=== PATIENT | male | born 1995 | race African-American/Black ===

== ENCOUNTER 2023-10-28 21:27 | Emergency (ER) | payer SELFPAY ==
[2023-10-28] MEDS ORDERED: MORPHINE 4 MG/ML SYR ONE (21:57)
[2023-10-28] MEDS ORDERED: ONDANSETRON 4 MG/2 ML VIAL ONE (21:57)
[2023-10-28] MEDS ORDERED: NA CHLORIDE 0.9% 1,000 ML ONE (21:58)
[2023-10-28 22:11] LABS: Albumin 3.5 g/dL (3.4-5.0); Albumin/Globulin Ratio 1.1 (1.1-1.8); Anion Gap 4.9 mEq/L (5.0-15.0); Bilirubin Total 0.4 mg/dL (0.2-1.0); Globulin 3.3 g/dL (2.3-3.5); Potassium 3.9 mEq/L (3.5-5.1); Protein, Total 6.8 g/dL (6.4-8.2)
[2023-10-28 22:12] LABS: Absolute Eosinophils 0.1 K/uL (0-0.5); Absolute Lymphocytes (CBC) 1.5 K/uL (0.7-4.9); Absolute Monocytes 0.6 K/uL (0.1-1.3); Absolute Neutrophil 5.9 K/uL (1.8-8.0); Basophils % 0.5 % (0-1.3); Eosinophils % 1.1 % (0-4.4); Hematocrit 42.2 % (39.6-49.0); Hemoglobin 13.7 g/dL (13.6-17.9); Lymphocytes % 18.9 % (15.3-44.8); MCHC 32.6 g/dL (32.0-36.0); Monocytes % 7.2 % (3.3-12.3); Neutrophils % 72.3 % (41.7-73.7); Nucleated Red Blood Cells % 0.1 % (0-0); Platelets 269 thou/uL (152-406); RBC Red Blood Cell Count 4.74 M/uL (4.33-5.43); Red Cell Distribution Width 12.6 % (12.1-15.2)
--- NOTE | 2023-10-29 00:16 | EDPHYS ---
Physician Documentation [facility] Name: Salvador Mays Age: 28 yrs Sex: Male : 1995 Arrival Date: 10/28/2023 Time: 21:27 Bed 13 Private MD: ED Physician Liu Guajardo HPI: 10/27 21:47 This 28 yrs old Male presents to ER via EMS with complaints of Abdominal Pain, rt Nausea/Vomiting. 21:47 Patient presents to the ED with nausea, vomiting, lower abdominal pain. This started rt about 2 hours prior to arrival. Patient states that he was initially vomiting stomach contents, clear fluid, then subsequently had blood admixed into the vomit. Subsequently developed a lower abdominal pain. Denies urinary symptoms, constipation, diarrhea. Denies other acute complaints at this time, symptoms are moderate in severity, no other aggravating or alleviating factors.. Historical: - Allergies: 21:43 No Known Allergies; [facility] - Home Meds: 21:43 None [Active]; [facility] - PMHx: 21:43 None; [facility] - Immunization history:: Adult Immunizations up to date. - Infectious Disease History:: Denies. - Social history:: Smoking status: Patient denies any tobacco usage or history of. - Family history:: not pertinent. ROS: 21:47 Constitutional: Negative for fever, chills, and weight loss, Cardiovascular: Negative rt for chest pain, palpitations, and edema, Respiratory: Negative for shortness of breath, cough, wheezing, and pleuritic chest pain, MS/Extremity: Negative for injury and deformity, Skin: Negative for injury, rash, and discoloration, Neuro: Negative for headache, weakness, numbness, tingling, and seizure, 21:47 Abdomen/GI: Positive for abdominal pain, nausea and vomiting, Exam: 21:47 Constitutional: This is a well developed, well nourished patient who is awake, alert, rt and in no acute distress. Head/Face: Normocephalic, atraumatic. Chest/axilla: Normal chest wall appearance and motion. Nontender with no deformity. No lesions are appreciated. Cardiovascular: Regular rate and rhythm with a normal S1 and S2. No gallops, murmurs, or rubs. Normal PMI, no JVD. No pulse deficits. Respiratory: Lungs have equal breath sounds bilaterally, clear to auscultation and percussion. No rales, rhonchi or wheezes noted. No increased work of breathing, no retractions or nasal flaring. Abdomen/GI: Soft, non-tender, with normal bowel sounds. No distension or tympany. No guarding or rebound. No evidence of tenderness throughout. Skin: Warm, dry with normal turgor. Normal color with no rashes, no lesions, and no evidence of cellulitis. MS/ Extremity: Pulses equal, no cyanosis. Neurovascular intact. Full, normal range of motion. Neuro: Awake and alert, GCS 15, oriented to person, place, time, and situation. Cranial nerves II-XII grossly intact. Motor strength 5/5 in all extremities. Sensory grossly intact. Cerebellar exam normal. Normal gait. Vital Signs: 21:36 BP 154 / 92; Pulse 72; Resp 16; Temp 98.6; Pulse Ox 100% ; Weight 117.93 kg; Height 6 jm12 ft. 3 in. ; Pain 3/10; 23:21 BP 165 / 102; Pulse 75; Resp 16; Temp 97.6; Pulse Ox 100% ; jm12 21:36 Body Mass Index 32.50 (117.93 kg, 190.5 cm) [facility] 21:36 Pain Scale: Adult 12 MDM: 21:30 Patient medically screened. rt 10/28 00:28 Differential diagnosis: Nonspecific abd pain, gastritis, pancreatitis, appendicitis. rt Data reviewed: vital signs, nurses notes, lab test result(s), radiologic studies. I considered the following discharge prescriptions or medication management in the emergency department Medications were administered in the Emergency Department. See MAR. Independent interpretation of the following test(s) in the Emergency Department CT Scan: My interpretation is No bowel obstruction seen on interpretation of CT scan images. Counseling: I had a detailed discussion with the patient and/or guardian regarding the historical points, exam findings, and any diagnostic results supporting the discharge/admit diagnosis, lab results, radiology results, the need for outpatient follow up, to return to the emergency department if symptoms worsen or persist or if there are any questions or concerns that arise at home. Response to treatment: the patient's symptoms have markedly improved after treatment. 10/27 21:30 Order name: CBC with Diff; Complete Time: 22:51 rt 10/27 21:30 Order name: CMP; Complete Time: 22:51 rt 08 21:30 Order name: Lipase; Complete Time: 22:51 rt 10/27 21:30 Order name: CT Abd/Pelvis - IV Contrast Only rt 10/27 21:30 Order name: IV Saline Lock; Complete Time: 21:36 rt 10/27 21:30 Order name: Labs collected and sent; Complete Time: 21:36 rt Administered Medications: 10/27 22:03 Drug: NS 0.9% IV 1000 ml IV at 1 bolus Per protocol; 1000 mL bolus Route: IV; Rate: 1 jm12 bolus; Site: left antecubital; 22:03 Drug: Ondansetron IVP 4 mg IVP once; over 2 minutes Route: IVP; Site: left antecubital; jm12 22:03 Drug: morphine IVP or IV 4 mg IVP once over 4 mins Route: IVP; Infused Over: 4 mins; jm12 Site: left antecubital; Disposition Summary: 10/29/23 00:16 Discharge Ordered Notes: Location: Home rt Problem: new rt Symptoms: have improved rt Condition: Stable rt Diagnosis - Nausea with vomiting, unspecified rt - Diarrhea, unspecified rt Followup: rt - With: Private Physician - When: 2 - 3 days - Reason: Discharge Instructions: - Discharge Summary Sheet rt - Diarrhea, Adult rt - Nausea and Vomiting, Adult, [id number] rt Forms: - Work release form vc1 - Medication Reconciliation Form rt - Antibiotic Education rt - Prescription Opioid Use rt - Patient Portal Instructions rt - Leadership Thank You Letter rt Prescriptions: - ondansetron 4 mg Oral Tablet,disintegrating - take 1 tablet ORAL route every 6 hours as needed for nausea; 18 tablet; rt Refills: 0, Product Selection Permitted Signatures: Dispatcher [employer] Liu Reyes MD MD rt Adele Rosales, RN RN jm12
--- NOTE | 2023-10-29 00:16 | ER ---
Nurse's Notes [facility] Name: Salvador Mays Age: 28 yrs Sex: Male : 1995 Arrival Date: 10/28/2023 Time: 21:27 Bed 13 Private MD: Diagnosis: Nausea with vomiting, unspecified;Diarrhea, unspecified Presentation: 10/27 21:36 Chief complaint: Patient states: Vomiting. Coronavirus screen: At this time, the client [facility] does not indicate any symptoms associated with coronavirus-19. Ebola Screen: No symptoms or risks identified at this time. Initial Sepsis Screen: Does the patient meet any 2 criteria? No. Patient's initial sepsis screen is negative. Does the patient have a suspected source of infection? No. Patient's initial sepsis screen is negative. Risk Assessment: Do you want to hurt yourself or someone else? Patient reports no desire to harm self or others. Onset of symptoms was October 28, 2023 at 19:30. 21:36 Method Of Arrival: EMS: [facility] 21:36 Acuity: LORETO 3 [facility] Triage Assessment: 21:43 General: Appears in no apparent distress. Behavior is calm, cooperative. Pain: [facility] Complains of pain in abdomen. Historical: - Allergies: 21:43 No Known Allergies; [facility] - Home Meds: 21:43 None [Active]; [facility] - PMHx: 21:43 None; [facility] - Immunization history:: Adult Immunizations up to date. - Infectious Disease History:: Denies. - Social history:: Smoking status: Patient denies any tobacco usage or history of. - Family history:: not pertinent. Assessment: 21:44 General: Appears in no apparent distress. Neuro: No deficits noted. Cardiovascular: No [facility] deficits noted. Respiratory: No deficits noted. GI: Reports lower abdominal pain, upper abdominal pain, nausea, vomiting. : No deficits noted. No signs and/or symptoms were reported regarding the genitourinary system. EENT: No deficits noted. No signs and/or symptoms were reported regarding the EENT system. Derm: No deficits noted. No signs and/or symptoms reported regarding the dermatologic system. Musculoskeletal: No deficits noted. No signs and/or symptoms reported regarding the musculoskeletal system. 22:43 Reassessment: Patient appears in no apparent distress at this time. No changes from [facility] previously documented assessment. Vital Signs: 21:36 BP 154 / 92; Pulse 72; Resp 16; Temp 98.6; Pulse Ox 100% ; Weight 117.93 kg; Height 6 [facility] ft. 3 in. ; Pain 3/10; 23:21 BP 165 / 102; Pulse 75; Resp 16; Temp 97.6; Pulse Ox 100% ; jm12 21:36 Body Mass Index 32.50 (117.93 kg, 190.5 cm) [facility] 21:36 Pain Scale: Adult [facility] ED Course: 21:29 Patient arrived in ED. rv1 21:29 Liu Guajardo MD is Attending Physician. rt 21:43 Triage completed. jm12 21:43 Arm band placed on right wrist. jm12 21:44 Maintain EMS IV. Dressing intact. Good blood return noted. Site clean \T\ dry. Gauge \T\ 12 site: 20 G LAC. 21:46 CBC with Diff Sent. ty 21:46 CMP Sent. ty 21:46 Lipase Sent. ty 21:46 Urinalysis w/ reflexes Sent. ty 23:00 CT Abd/Pelvis - IV Contrast Only In Process Unspecified. EDNE 10/28 00:36 IV discontinued, intact, bleeding controlled, No redness/swelling at site. Pressure [facility] dressing applied. Administered Medications: 10/27 22:03 Drug: NS 0.9% IV 1000 ml IV at 1 bolus Per protocol; 1000 mL bolus Route: IV; Rate: 1 jm12 bolus; Site: left antecubital; 22:03 Drug: Ondansetron IVP 4 mg IVP once; over 2 minutes Route: IVP; Site: left antecubital; [facility] 22:03 Drug: morphine IVP or IV 4 mg IVP once over 4 mins Route: IVP; Infused Over: 4 mins; [facility] Site: left antecubital; Outcome: 10/28 00:16 Discharge ordered by . rt 00:36 Discharged to home ambulatory, [facility] 00:36 Discharge instructions given to patient, Instructed on discharge instructions, follow up and referral plans. medication usage, Demonstrated understanding of instructions, follow-up care, medications, Prescriptions given X 1, 00:37 Patient left the ED. [facility] Signatures: Dispatcher [employer] EDNE Liu Guajardo MD MD rt Denia Enriquez rv1 Jona Stephen Jessica, RN RN jm12
--- NOTE | 2023-10-29 11:07 | RAD REPORT ---
EXAM DESCRIPTION: Abdomen Pelvis W Contrast CLINICAL HISTORY: 28-year-old male with abdominal pain. COMPARISON: None. TECHNIQUE: CT of the abdomen and pelvis was performed following intravenous administration of contra st. Oral contrast was not administered. Multiplanar reformatted images were provided. This exam was p erformed according to our departmental dose optimization program which includes use of automated expo sure control, adjustment of the mA and/or kV according to patient size and/or use of iterative recons truction technique. FINDINGS: Chest: Evaluation through the lung bases reveals no focal opacity, pleural effusion or pne umothorax. Heart size is within normal limits. No pericardial effusion. Abdomen and pelvis: The liver, gallbladder, pancreas, spleen, bilateral kidneys and bilateral adrenal glands are within normal limits. The vessels are patent and normal in caliber. No abdominopelvic lymph nodes are noted to be pathologically enlarged by CT measurement criteria. The bowel is within normal limits without abnormal bowel wall thickness or bowel dilation. No free air. No free abdominopelvic fluid collections. The appendix is within normal limits. The osseous structures are within normal limits. IMPRESSION: No specific acute intra-abdominal findings are noted to suggest etiology of the patient' s abdominal pain. Electronically signed by: Rosemary García MD 10/28/2023 11:59 PM CDT RP Due to temporary technical issues with the PACS/Fluency reporting system, reports are being signed by the in house radiologists without review as a courtesy to insure prompt reporting. The interpreting radiologist is fully responsible for the content of the report.
== END 2023-10-29 00:37 | disposition home or self-care (01) ==
LOC: ER 21:27
DX: R11.2 Nausea with vomiting, unspecified (principal); R19.7 Diarrhea, unspecified
CPT/HCPCS: 36415; 74177; 80053; 83690; 85025; 96374; 96375; 99284; J2405; J7030; Q9967

== ENCOUNTER 2024-01-16 21:04 | Emergency (ER) | payer OTHER ==
[2024-01-16] MEDS ORDERED: DIAZEPAM 5 MG TABLET ONE (21:46)
[2024-01-16 21:58] LABS: Absolute Basophils 0.1 K/uL (0-0.5); Absolute Lymphocytes (CBC) 1.8 K/uL (0.7-4.9); Absolute Monocytes 0.6 K/uL (0.1-1.3); Absolute Neutrophil 5.3 K/uL (1.8-8.0); Basophils % 0.8 % (0-1.3); Eosinophils % 0.1 % (0-4.4); Hematocrit 46.7 % (39.6-49.0); Hemoglobin 15.5 g/dL (13.6-17.9); Lymphocytes % 23.6 % (15.3-44.8); MCH 29.1 pg (27.0-35.0); MCHC 33.2 g/dL (32.0-36.0); MCV 87.7 fL (80-100); MPV 8.8 fL (7.6-11.3); Monocytes % 7.5 % (3.3-12.3); Platelets 264 thou/uL (152-406); RBC Red Blood Cell Count 5.33 M/uL (4.33-5.43); Red Cell Distribution Width 12.2 % (12.1-15.2)
[2024-01-16 22:25] LABS: ALT/SGPT 25 U/L (16-61); Albumin 4.4 g/dL (3.4-5.0); Albumin/Globulin Ratio 1.2 (1.1-1.8); Alkaline Phosphatase 76 U/L (45-117); Anion Gap 11.6 mEq/L (5.0-15.0); BUN Blood Urea Nitrogen 15 mg/dL (7-18); Bicarbonate 26 mEq/L (21-32); Bilirubin Direct 0.2 mg/dL (0-0.2); Bilirubin Indirect, Calculated 0.8 mg/dL (0.2-0.8); Globulin 3.8 g/dL (2.3-3.5); Glomerular Filtration Rate 86 ml/min (=/>90); Glucose Level 89 mg/dL (74-106); Protein, Total 8.2 g/dL (6.4-8.2); Sodium Level 137 mEq/L (136-145)
[2024-01-16 22:26] LABS: AST/SGOT 27 U/L (15-37); Potassium 3.6 mEq/L (3.5-5.1)
[2024-01-16 22:32] LABS: PTT, Activated Partial Thromb 30.1 SECONDS (24.3-36.9); Protime INR 1.26
[2024-01-17] MEDS ORDERED: LORazepam 2 MG/ML VIAL ONE (01:02)
[2024-01-17 01:41] LABS: Specific Gravity > 1.030 (1.005-1.030); Sqamous Epithelial <5 /HPF (None Seen); Urine Bacteria None Seen /HPF (<20); Urine Bilirubin 1+ (Negative); Urine Blood Negative (Negative); Urine Clarity Clear (Clear); Urine Color Yellow (Yellow); Urine Culture Reflex Order NOT NEEDED; Urine Glucose NEGATIVE (Negative); Urine Ketones 4+ (Over) (Negative); Urine Microscopic Reflex YN ORDER UMIC; Urine Mucus 2+ /HPF (None Seen); Urine Nitrite NEGATIVE (Negative); Urine Protein 1+ (Negative); Urine RBC <5 /HPF (None Seen); Urine Urobilinogen 1+ (Normal); Urine WBC <5 /HPF (<5)
[2024-01-17 01:44] LABS: Barbiturates NEGATIVE (NEGATIVE); Benzodiazepines POSITIVE (NEGATIVE); Cocaine NEGATIVE (NEGATIVE); METHAMPHETAM NEGATIVE (NEGATIVE); Methadone NEGATIVE (NEGATIVE); Opiates NEGATIVE (NEGATIVE); Phencyclidine NEGATIVE (NEGATIVE); THC Cannibis POSITIVE (NEGATIVE)
--- NOTE | 2024-01-17 04:55 | EDPHYS ---
Physician Documentation [facility] Name: Salvador Mays Age: 28 yrs Sex: Male : 1995 Arrival Date: 01/16/2024 Time: 21:04 Bed 15 Private MD: ED Physician Carlos Arana HPI: 01/15 21:13 This 28 yrs old Black Male presents to ER via Unassigned with complaints of depression..sp4 21:16 28-year-old male presents with EMS for acute worsening depression with suicide plan.. sp4 Patient's mother states that 3 months ago patient has a painful break-up from his girlfriend with whom he has 3-1/2-year-old child. Patient also lost his job 3 months ago and has lost his income. 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 Patient attempted to hang himself on the ceiling fan but could not go through it at home. Patient has not had any prior psychiatric treatment and does not take any medications. No prior suicide attempts . Historical: - Allergies: 21:38 Grass; jj7 - PMHx: 21:38 None; jj7 - PSHx: 21:38 None; jj7 - Immunization history:: Client reports having NOT received the Covid vaccine. - Social history:: The patient is unemployed, Smoking status: Patient reports the use of cigarette tobacco products, cigars, Patient/guardian denies using alcohol, street drugs. - Infectious Disease History:: Denies. - Family history:: not pertinent. ROS: 21:19 Constitutional: Negative for fever, chills, and weight loss, positive depression with sp4 positive suicidal ideation and plan. 21:19 All other systems are negative, Exam: 21:19 Constitutional: This is a well developed, well nourished patient who is awake, alert, sp4 and in no acute distress. Head/Face: Normocephalic, atraumatic. Eyes: Pupils equal round and reactive to light, extra-ocular motions intact. Lids and lashes normal. Conjunctiva and sclera are not injected. Cornea within normal limits. Periorbital areas with no swelling, redness, or edema. ENT: Nares patent. No nasal discharge, no septal abnormalities noted. Tympanic membranes are normal and external auditory canals are clear. Oropharynx with no redness, swelling, or masses, exudates, or evidence of obstruction, uvula midline. Mucous membranes moist. Neck: Trachea midline, no thyromegaly or masses palpated, and no cervical lymphadenopathy. Supple, full range of motion without nuchal rigidity, or vertebral point tenderness. Chest/axilla: Normal chest wall appearance and motion. Nontender with no deformity. No lesions are appreciated. Cardiovascular: Regular rate and rhythm with a normal S1 and S2. No gallops, murmurs, or rubs. Normal PMI, no JVD. No pulse deficits. Respiratory: Lungs have equal breath sounds bilaterally, clear to auscultation and percussion. No rales, rhonchi or wheezes noted. No increased work of breathing, no retractions or nasal flaring. Abdomen/GI: Soft, with normal bowel sounds. No distension or tympany. No guarding or rebound. No evidence of tenderness throughout. Back: No spinal tenderness. No costovertebral tenderness. Skin: Warm, dry with normal turgor. Normal color with no rashes, no lesions, and no evidence of cellulitis. MS/ Extremity: Pulses equal, no cyanosis. Neurovascular intact. Full, normal range of motion. Neuro: Awake and alert, GCS 15, oriented to person, place, time, and situation. Cranial nerves II-XII grossly intact. Motor strength 5/5 in all extremities. Sensory grossly intact. Psych: Awake, alert, with orientation to person, place and time. Appers depressed, reports suicidal ideation with plan 21:20 ECG was reviewed by the Attending Physician. EKG at 2052 normal sinus rhythm at the sp4 rate of 98. Vital Signs: 21:04 BP 186 / 92; Pulse 87; Resp 18; Temp 97.2; Pulse Ox 97% ; Weight 113.4 kg; Height 6 ft. jj7 3 in. ; 01/16 06:14 BP 135 / 93; Pulse 99; Resp 20; Pulse Ox 98% ; jj7 07:29 BP 130 / 90; Pulse 85; Resp 18 S; Temp 98.1(TE); Pulse Ox 100% on R/A; Pain 0/10; kc6 01/15 21:04 Body Mass Index 31.25 (113.40 kg, 190.5 cm) jj7 07:29 Pain Scale: Adult kc6 [place] Coma Score: 01/15 21:19 Eye Response: spontaneous(4). Motor Response: obeys commands(6). Verbal Response: sp4 oriented(5). Total: 15. MDM: 21:16 Medical Screening Exam initiated 01/16 04:53 Differential diagnosis: drug withdrawal. acute psychotic break, depression, psychosis sp4 secondary to non-compliance. Data reviewed: vital signs, nurses notes, EMS record, lab test result(s), EKG. ED course: Positive for suicidality with plan. [facility] associate evaluated patient and advised inpatient management. Patient will be sent to psychiatric hospital for further stabilization.. 01/15 21:14 Order name: Acetaminophen; Complete Time: :4 01/15 21:14 Order name: Basic Metabolic Panel; Complete Time: :4 01/15 21:14 Order name: CBC with Diff; Complete Time: 01: 4 01/15 21:14 Order name: ETOH Level; Complete Time: : 4 01/15 21:14 Order name: Hepatic Function; Complete Time: 01:4 01/15 21:14 Order name: PT-INR; Complete Time: :4 01/15 21:14 Order name: Ptt, Activated; Complete Time: :4 01/15 21:14 Order name: Salicylate; Complete Time: :4 01/15 21:14 Order name: Urinalysis w/ reflexes; Complete Time: : 4 01/15 21:14 Order name: Urine Drug Screen; Complete Time: 4 01/15 21:14 Order name: EKG - Nurse/Tech; Complete Time: :4 01/15 21:14 Order name: IV Saline Lock; Complete Time: : sp4 01/15 21:14 Order name: Labs collected and sent; Complete Time: : sp4 01/15 21:14 Order name: Suicide Precautions; Complete Time: : sp4 01/15 21:14 Order name: Suicide Screening ([place]); Complete Time: :33 sp4 EC/24 20:53 Rate is 98 beats/min. Rhythm is regular, Normal Sinus Rhythm. QRS [place] is Normal. [place] sp4 interval is normal. QRS interval is normal. QT interval is normal. No Q waves. T waves are Normal. No ST changes noted. Clinical impression: No evidence of ischemia. Interpreted by me. Reviewed by me. Administered Medications: 21:49 Drug: Diazepam PO 10 mg PO once Route: PO; tm6 23:00 Follow up: Response: No adverse reaction jj7 01/16 01:06 Drug: Ativan IVP 2 mg IVP once Route: IVP; Site: left antecubital; jj7 01:30 Follow up: Response: Marked relief of symptoms; Anxiety decreased jj7 Disposition Summary: 01/17/24 04:54 Transfer Ordered Notes: Transfer Location: [facility] sp4 Reason: Higher level of care sp4 Condition: Stable sp4 Problem: new sp4 Symptoms: have improved sp4 Accepting Physician: Attending psychiatrist(01/17/24 07:36) kc6 Diagnosis - Acute depressive disorder, acute anxiety, acute panic attack, suicidal ideation sp4 with plan . Forms: - Medication Reconciliation Form sp4 - SBAR form sp4 Signatures: Dispatcher [employer] EDHazel White RN RN ha1 Jodi Mann RN RN kc6 Chandrakant Ibarra RN RN jj7 Carlos Arana MD MD sp4 Lexa Mendez RN RN tm6 Corrections: (The following items were deleted from the chart) 01/15 21:15 21:15 ACETAMINOPHEN+C.LAB.BRZ ordered. EDMS EDMS 21:15 21:15 BASIC METABOLIC PANEL+C.LAB.BRZ ordered. EDMS EDMS 21:15 21:15 CBC+H.LAB.BRZ ordered. EDMS EDMS 21:15 21:15 ETHANOL+C.LAB.BRZ ordered. EDMS EDMS 21:15 21:15 HEPATIC FUNCTION+C.LAB.BRZ ordered. EDMS EDMS 21:15 21:15 PROTIME (+INR)+COAG.LAB.BRZ ordered. EDMS EDMS 21:15 21:15 PTT, ACTIVATED+COAG.LAB.BRZ ordered. EDMS EDMS 21:15 21:15 SALICYLATE+C.LAB.BRZ ordered. EDMS EDMS 21:15 21:15 Urinalysis+U.LAB.BRZ ordered. EDMS EDMS 21:15 21:15 URINE DRUG SCREEN+UC.LAB.BRZ ordered. EDPA EDMS 01/16 07:36 04:54 Attending psychiatrist sp4 kc6
--- NOTE | 2024-01-17 04:55 | ER ---
Nurse's Notes [facility] Name: Salvador Mays Age: 28 yrs Sex: Male : 1995 Arrival Date: 01/16/2024 Time: 21:04 Bed 15 Private MD: Diagnosis: Acute depressive disorder, acute anxiety, acute panic attack, suicidal ideation with plan . Presentation: 01/15 21:04 Chief complaint: Patient states: PT STATES HE WAS TRYING TO HANG HIMSELF FROM THE FAN jj7 BUT IT COULDN'T HOLD HIS WEIGHT SO IT DID NOT WORK. STATES HE THIS IS NOT HIS FIRST SI ATTEMPT. Coronavirus screen: At this time, the client does not indicate any symptoms associated with coronavirus-19. Ebola Screen: No symptoms or risks identified at this time. Initial Sepsis Screen: Does the patient meet any 2 criteria? No. Patient's initial sepsis screen is negative. Does the patient have a suspected source of infection? No. Patient's initial sepsis screen is negative. Risk Assessment: Do you want to hurt yourself or someone else? Patient reports desire/thoughts of hurting themselves or someone else. Provider notified. Onset of symptoms is unknown. 21:04 Method Of Arrival: EMS: [facility] j7 21:04 Acuity: LORETO 2 jj7 Triage Assessment: 21:04 General: Appears in no apparent distress. comfortable, Behavior is calm, cooperative, jj7 appropriate for age. Pain: Denies pain. Neuro: Level of Consciousness is awake, alert, obeys commands, Oriented to person, place, time, situation, Appropriate for age. Historical: - Allergies: 21:38 Grass; jj7 - PMHx: 21:38 None; jj7 - PSHx: 21:38 None; jj7 - Immunization history:: Client reports having NOT received the Covid vaccine. - Social history:: The patient is unemployed, Smoking status: Patient reports the use of cigarette tobacco products, cigars, Patient/guardian denies using alcohol, street drugs. - Infectious Disease History:: Denies. - Family history:: not pertinent. Screenin:04 [facility] ED Fall Risk Assessment (Adult) History of falling in the last 3 months, jj7 including since admission No falls in past 3 months (0 pts) Confusion or Disorientation No (0 pts) Intoxicated or Sedated No (0 pts) Impaired Gait No (0 pts) Mobility Assist Device Used No (0 pt) Altered Elimination No (0 pt) Score/Fall Risk Level 0 - 2 = Low Risk Oriented to surroundings, Maintained a safe environment, Educated pt \\T\\ family on fall prevention, incl call for assistance when getting out of bed, Assessed \\T\\ reinforced patient's understanding of fall precautions. Abuse screen: Denies threats or abuse. Nutritional screening: No deficits noted. Tuberculosis screening: No symptoms or risk factors identified. Assessment: 21:04 Reassessment: SEE TRIAGE ASSESSMENT. jj7 21:11 General: Appears in no apparent distress. Behavior is calm, cooperative. Pain: Denies tm6 pain. Neuro: Level of Consciousness is awake, alert, obeys commands, Oriented to person, place, time, situation. Cardiovascular: Patient's skin is warm and dry. Respiratory: Airway is patent Respiratory effort is even, unlabored, Respiratory pattern is regular, symmetrical. GI: No signs and/or symptoms were reported involving the gastrointestinal system. Abdomen is flat, non-distended. : No signs and/or symptoms were reported regarding the genitourinary system. EENT: No signs and/or symptoms were reported regarding the EENT system. Derm: No signs and/or symptoms reported regarding the dermatologic system. Musculoskeletal: No signs and/or symptoms reported regarding the musculoskeletal system. 22:00 Reassessment: ASSUMED CARE OF PT. PT SITTING IN BED. MOTHER AT BEDSIDE. REASSESSED SI jj7 SCALE. INFORMED PT OF PLAN OF CARE AND SI PROTOCOL. 01/16 00:00 Reassessment: Patient is alert, oriented x 3, equal unlabored respirations, skin jj7 warm/dry/pink. MOTHER AT BEDSIDE. 01:00 Reassessment: PT APPEARS TO BE HAVING AN ANXIETY ATTACK. INFORMED. MEDS ORDERED. jj7 03:00 Reassessment: PT SLEEPING. MOTHER AT BEDSIDE. jj7 03:40 Reassessment: [facility] HANGER AT BESIDE SPEAKING WITH PT. j 05:40 Reassessment: PT SLEEPING. jj7 06:12 Reassessment: REPORT GIVEN RONAL RIVERA [facility]. jj7 07:00 Reassessment: Patient appears in no apparent distress at this time. No changes from kc6 previously documented assessment. Patient and/or family updated on plan of care and expected duration. Pain level reassessed. Patient is alert, oriented x 3, equal unlabored respirations, skin warm/dry/pink. Psych: 01/15 21:11 [place] Suicide Severity Screening: In the past month, have you wished you were tm6 or wished you could go to sleep and not wake up? Patient responds "yes." Based off the client's responses additional C-SSRS screening is required. "In the past month, have you actually had any thoughts of killing yourself?" Patient responds "yes." Based off the client's response additional [place] suicide severity screening questions to be further documented on paper forms. "In your lifetime, have you ever done anything, started to do anything, or prepared to do anything to end your life?" Patient responds "yes." Patient reports suicidal intent within 3 past months. Patient reports suicidal intent occurred greater than 3 months prior. Subjective: Patient's mood is sad, Delusions are denied, Hallucinations are denied Having thoughts of suicide. Plan for suicide is hanging. Objective: Patient is cooperative, Speech is normal, Affect is appropriate. Interventions: Removed personal items and placed in bag. Patient placed in hospital gown. Searched person for dangerous items. Belonging list filled out. Safety Checks: Personal items have been removed. Door is open. Visitors are present. Pt denies substance abuse. Vital Signs: 21:04 BP 186 / 92; Pulse 87; Resp 18; Temp 97.2; Pulse Ox 97% ; Weight 113.4 kg; Height 6 ft. [facility] 3 in. ; 01/16 06:14 BP 135 / 93; Pulse 99; Resp 20; Pulse Ox 98% ; 7 07:29 BP 130 / 90; Pulse 85; Resp 18 S; Temp 98.1(TE); Pulse Ox 100% on R/A; Pain 0/10; kc6 01/15 21:04 Body Mass Index 31.25 (113.40 kg, 190.5 cm) 7 07:29 Pain Scale: Adult kc6 Stevenson Coma Score: 01/15 21:19 Eye Response: spontaneous(4). Motor Response: obeys commands(6). Verbal Response: sp4 oriented(5). Total: 15. ED Course: 21:04 Arm band placed on right wrist. jj7 21:04 Patient has correct armband on for positive identification. Side rails up X2. Adult w/ jj7 patient. 21:04 No provider procedures requiring assistance completed. jj7 21:11 Patient arrived in ED. vc1 21:11 Safety checks: Items removed: yes. Door open/sign placed on door: no. Other: noise from ty monitors in area causing distress Family/friend present: yes. Sitter present: Yes. Patient has correct armband on for positive identification. Placed in gown. Bed in low position. Side rails up X 1. Adult w/ patient. Valuables Given to family. See valuables checklist. Door closed. Noise minimized. Lights dimmed. Warm blanket given. Pillow given. PO fluids given. 21:12 Carlos Arana MD is Attending Physician. sp4 21:18 Initial lab(s) drawn, by me, sent to lab. EKG done, by ED staff, reviewed by Carlos Arana MD. Inserted saline lock: 20 gauge in left antecubital area, using aseptic technique. Blood collected. Flushed with 10 mL NS. 21:30 Lexa Mendez, RN is Primary Nurse. tm6 21:38 Triage completed. jj7 22:03 Acetaminophen Sent. ty 22:03 Basic Metabolic Panel Sent. ty 22:03 CBC with Diff Sent. ty 22:03 ETOH Level Sent. ty 22:06 Hepatic Function Sent. ty 22:06 PT-INR Sent. ty 22:06 Ptt, Activated Sent. ty 22:06 Salicylate Sent. ty 01/16 01:15 called [facility] fidel Gonzalez. sp 06:16 administrative approval given to Lamar by Arun Ward/ patient has been accepted to [facility]/ Dr. Feroz Larkin has accepted the patient in transfer/. 07:00 Safety Checks: Personal items have been removed. The door is not opened, nor is patient kc6 placed in a hallway bed/chair. There are no family/friend visitors at this time Sitter present at this time. 07:00 Report received from MIGUEL WINTER. kc6 07:00 Door closed. Noise minimized. Visitors limited. Lights dimmed. Warm blanket given. kc6 Pillow given. Patient is placed in psych hold. 07:00 Patient maintains SpO2 saturation greater than 95% on room air. kc6 07:07 Report given to JODI RIVERA. jj7 07:30 IV discontinued, intact, bleeding controlled, No redness/swelling at site. Pressure kc6 dressing applied. Administered Medications: 01/15 21:49 Drug: Diazepam PO 10 mg PO once Route: PO; tm6 23:00 Follow up: Response: No adverse reaction jj7 01/16 01:06 Drug: Ativan IVP 2 mg IVP once Route: IVP; Site: left antecubital; jj7 01:30 Follow up: Response: Marked relief of symptoms; Anxiety decreased jj7 Medication: 01/15 21:04 VIS not applicable for this client. jj7 Outcome: 01/16 04:54 ER care complete, transfer ordered by . sp4 07:30 Transferred by ground EMS Transfer form completed. kc6 07:30 Condition: good 07:30 Instructed on the need for transfer, 07:30 Patient left the ED. aa5 07:30 Transferred Note: to [facility] aa5 Signatures: Lamar Johansen Audri, RN RN aa5 Ariana Hernandez Vanessa RN RN vc1 Hazel Saez RN RN ha1 Jodi Mann RN RN kc6 Chandrakant Ibarra RN RN jj7 Carlos Arana MD MD sp4 Lexa Mendez RN RN tm6 Jona Stephen ty Corrections: (The following items were deleted from the chart) 01/15 22:09 21:18 Safety checks: ty ty : 21:18 Safety checks: Items removed: yes. Door open/sign placed on door: no. Other: ty noise from monitors in area causing distress Family/friend present: yes. Sitter present: Yes. ty 22: 21:18 Patient has correct armband on for positive identification. Placed in gown. Bed ty in low position. Side rails up X 1. Adult w/ patient. Valuables Given to family. See valuables checklist. ty : 21:18 Door closed. Noise minimized. Lights dimmed. Warm blanket given. Pillow given. PO ty fluids given. ty : 21:11 Reassessment: Patient and/or family updated on plan of care and expected ha1 duration. Pain level reassessed. Patient is alert, oriented x 3, equal unlabored respirations, skin warm/dry/pink. [facility] :34 21:11 General: Appears in no apparent distress. Behavior is calm, cooperative, 1 1 :34 21:11 Pain: Denies pain. 1 1 :34 21:11 Neuro: Level of Consciousness is awake, alert, obeys commands, Oriented to ha1 person, place, time, situation, [facility] :34 21:11 Cardiovascular: Patient's skin is warm and dry. 1 1 :34 21:11 Respiratory: Airway is patent Respiratory effort is even, unlabored, Respiratory ha1 pattern is regular, symmetrical, [facility] :34 21:11 GI: No signs and/or symptoms were reported involving the gastrointestinal system. ha1 Abdomen is flat, non-distended, [facility] :34 21:11 : No signs and/or symptoms were reported regarding the genitourinary system. 11 :34 21:11 EENT: No signs and/or symptoms were reported regarding the EENT system. 1 1 :34 21:11 Derm: No signs and/or symptoms reported regarding the dermatologic system. 1 1 :34 21:11 Musculoskeletal: No signs and/or symptoms reported regarding the musculoskeletal ha1 system. [facility] :34 21:11 [place] Suicide Severity Screening: In the past month, have you wished you were ha1 or wished you could go to sleep and not wake up? Patient responds "yes." Based off the client's responses additional C-SSRS screening is required. "In the past month, have you actually had any thoughts of killing yourself?" Patient responds "yes." Based off the client's response additional [place] suicide severity screening questions to be further documented on paper forms. "In your lifetime, have you ever done anything, started to do anything, or prepared to do anything to end your life?" Patient responds "yes." Patient reports suicidal intent within 3 past months. Patient reports suicidal intent occurred greater than [address] [facility] :34 21:11 Subjective: Patient's mood is sad, Delusions are denied, Hallucinations are ha1 denied Having thoughts of suicide. Plan for suicide is hanging [facility] 21:11 Objective: Patient is cooperative, Speech is normal, Affect is appropriate, [place] [id number] 34 21:11 Interventions: Removed personal items and placed in bag. Patient placed in [facility] hospital gown. Searched person for dangerous items. Belonging list filled out. [facility] 21:11 Safety Checks: Personal items have been removed. Door is open. Visitors are [facility] present. [facility] 21:11 Pt denies substance abuse [place] [id number] 01/16 08:14 07:36 Patient left the ED. kc6 aa5
--- NOTE | 2024-01-17 14:12 | EKG ---
Test Date: 2024-01-16 Test Time: 20:53:06 Craft Manager: SOPHY MEASUREMENT RESULTS: Intervals: Rate: 98 ME: 190 QRSD: 80 QT: 316 QTc: 403 Reading: P: -9 ME: 190 QRS: 8 T: 8 INTERPRETIVE STATEMENTS: Normal sinus rhythm with sinus arrhythmia Normal ECG No previous ECG available for comparison Electronically Signed On 01-17-24 14:10:56 CDT by Brad Campo
[2024-01-17 19:04] VITALS: BP 130/90; TEMP 98.1; O2SAT 100
== END 2024-01-17 07:36 ==
LOC: ER 21:04
DX: F32.A Depression, unspecified (principal); F41.0 Panic disorder [episodic paroxysmal anxiety]; F41.9 Anxiety disorder, unspecified; R45.851 Suicidal ideations; Z72.0 Tobacco use
CPT/HCPCS: 36415; 80048; 80076; 80143; 80179; 80307; 81001; 82077; 85025; 85610; 85730; 93005; 96374; 99285

== ENCOUNTER 2024-12-15 09:59 | Emergency (ER) | payer OTHER ==
--- OUTSIDE RECORDS SUMMARY | 2024-12-15 10:03 | XMS REPORT | Continuity of Care Document ---
Author Name Unknown Address [address] [place] [address] [facility] Address [address] [place] [address] Care Team Providers Care Vice President Business & Corporate Development Name Role Phone Jeanette Santos Primary Care Physician Medications Ordered Medication Name Filled Medication Name Start Date Stop Date Current Medication? Ordering Clinician Indication Dosage Frequency Signature (SIG) Comments Components Source doxycycline monohydrate 100 mg tablet 11-06 00:00: 00 Yes 1mg Isidro Alegre Vital Signs Vital Name Observation Time Observation Value Comments S ource Weight Measured 2024-11-06 14:32:00 232.80 pounds Isidro Alegre Height Measured 2024-11-06 14:32:00 75.00 inches Isidro Alegre Body Temperature 2024-11-06 14:32:00 97.80 degrees Isidro Alegre Heart Rate 2024-11-06 14:32:00 67.00 /min Ciara en F Codey Respiratory Rate 2024-11-06 14:32:00 18.00 /min Isidro Alegre BP Systolic 2024-11-06 14:32:00 146 mm[Hg] Step hen Ally Alegre BP Diastolic 2024-11-06 14:32:00 91 mm[Hg] Kody phen Ally Alegre Encounters Start Date/Time End Date/Time Encounter Type Admission Type Attending Clinicians [facility] Facility Care Department Encounter ID Source 2024-11-06 14:55:30 2024-11-06 14:55:30 Outpatient [facility] SFA [id number] Isidro Alegre 2024-11-06 00:00:00 2024-11-06 00:00:[address] [facility] [id number] Isidro Alegre Notes Date/Time Note Provider Source Isidro Alegre [facility]
[2024-12-15] MEDS ORDERED: HYDROCODONE/CHLORPHEN 5 ML/OSYR ONE (10:05)
[2024-12-15] MEDS ORDERED: ONDANSETRON 4 MG/2 ML VIAL ONE (10:05)
[2024-12-15] MEDS ORDERED: NA CHLORIDE 0.9% 1,000 ML ONE (10:05)
[2024-12-15 10:26] LABS: Absolute Lymphocytes (CBC) 1.1 K/uL (0.7-4.9); Hematocrit 47.3 % (39.6-49.0); Hemoglobin 15.1 g/dL (13.6-17.9); MCH 28.3 pg (27.0-35.0); MCHC 32.0 g/dL (32.0-36.0); MCV 88.5 fL (80-100); MPV 7.9 fL (7.6-11.3); Nucleated RBC Absolute Count 0.0 (0-0); Nucleated Red Blood Cells % 0.0 % (0-0); RBC Red Blood Cell Count 5.35 M/uL (4.33-5.43); White Blood Count 11.30 thou/uL (4.3-10.9)
[2024-12-15 10:41] LABS: ALT/SGPT 21.0 U/L (16-61); AST/SGOT 20.0 U/L (15-37); Albumin 4.0 g/dL (3.4-5.0); Albumin/Globulin Ratio 1.1 (1.1-1.8); Alkaline Phosphatase 66.0 U/L (45-117); Anion Gap 10.6 mEq/L (5.0-15.0); BUN Blood Urea Nitrogen 11.0 mg/dL (7-18); Globulin 3.5 g/dL (2.3-3.5); Glucose Level 103.0 mg/dL (74-106); Potassium 3.6 mEq/L (3.5-5.1)
--- NOTE | 2024-12-15 10:41 | RAD REPORT ---
EXAMINATION: ONE VIEW CHEST XR CLINICAL INDICATION: Male, 29 years old.,COUGH TECHNIQUE: Frontal chest projection is submitted. Examination is limited by patient positioning and t echnique. COMPARISON: No prior exam. FINDINGS: The lungs are well inflated and clear. No pneumothorax or sizable effusion. The heart is normal in s ize. Mediastinal contours are unremarkable. IMPRESSION: No acute intrathoracic abnormalities.
[2024-12-15 10:51] LABS: Influenza A Ag Negative; Influenza B Ag Negative; SARS-CoV-2 Antigen Rapid Res Negative (Negative)
--- NOTE | 2024-12-15 11:11 | EDPHYS ---
Physician Documentation [facility] Name: Salvador Mays Age: 29 yrs Sex: Male : 1995 Arrival Date: 12/15/2024 Time: 09:59 Bed 15 Private MD: ED Physician Benjie Garcia HPI: 12/15 11:00 This 29 yrs old Black Male presents to ER via EMS with complaints of Flu Symptoms. kb 11:00 Pt is a 29 year old male who presents for cough, congestion, nausea, vomiting and kb bodyaches that started 2 days ago. Denies fever. States child has also been sick with similar symptoms.. Historical: - Allergies: 10: Grass; bp - Immunization history:: Adult Immunizations up to date. - Infectious Disease History:: Denies. - Social history:: Smoking status: unknown. ROS: 10:59 Constitutional: As per HPI kb Exam: 10:59 Constitutional: This is a well developed, well nourished patient who is awake, alert, kb and in no acute distress. Head/Face: Normocephalic, atraumatic. ENT: Moist Mucous membranes Cardiovascular: Regular rate Respiratory: Respirations even and unlabored. No increased work of breathing. Talking in full sentences Skin: Warm, dry with normal turgor. Normal color. MS/ Extremity: Pulses equal, no cyanosis. Neurovascular intact. Full, normal range of motion. Neuro: Awake and alert, GCS 15, oriented to person, place, time, and situation. Vital Signs: 10:00 BP 148 / 88; Pulse 98; Resp 20; Temp 99.1; Pulse Ox 98% ; bp 11:29 BP 139 / 78; Pulse 87; Resp 20; Pulse Ox 98% ; bp MDM: 10:00 Medical Screening Exam initiated kb 11:00 Data reviewed: vital signs, nurses notes. kb 11:07 Differential diagnosis: flu, covid, strep, asthma, pneumonia. I considered the kb following discharge prescriptions or medication management in the emergency department I discussed and recommended Over The Counter medications, Antibiotics: At this time antibiotics are not recommended. Independent interpretation of the following test(s) in the Emergency Department X-Ray: My interpretation is no pneumoina. Historians other than the Patient: EMS: [facility]. Counseling: I had a detailed discussion with the patient and/or guardian regarding the historical points, exam findings, and any diagnostic results supporting the discharge/admit diagnosis, lab results, radiology results, the need for outpatient follow up, a family practitioner, to return to the emergency department if symptoms worsen or persist or if there are any questions or concerns that arise at home. 12/15 10:01 Order name: CBC with Diff; Complete Time: 10:30 kb 12/15 10:01 Order name: CMP; Complete Time: 10:51 kb 12/15 10:01 Order name: COVID-19 Ag + Flu A+B Ag; Complete Time: 10:59 kb 12/15 10:04 Order name: Group A Streptococcus Rapid; Complete Time: 10:51 kb 12/15 10:45 Order name: Throat Culture EDMS 12/15 10:01 Order name: Chest Single View XRAY; Complete Time: 10:51 kb 12/15 10:01 Order name: IV Saline Lock; Complete Time: 10:31 kb 12/15 10:01 Order name: Labs collected and sent; Complete Time: 10:31 kb Administered Medications: 10:13 Drug: NS 0.9% IV 1000 ml IV at 1 bolus Per protocol; to be given as a bolus over 60 bp minutes Route: IV; Rate: 1 bolus; Site: right antecubital; 11:28 Follow up: IV Status: Completed infusion bp 10:14 Drug: Ondansetron IVP 4 mg IVP once; over 2 minutes Route: IVP; Site: right antecubital;bp 11:28 Follow up: Response: No adverse reaction bp 10:14 Drug: Tussionex Pennkinetic ER PO Suspension 5 ml PO once Route: PO; bp 11:28 Follow up: Response: No adverse reaction bp 11:28 Drug: Decadron - Dexamethasone IVP 10 mg IVP once Route: IVP; Site: right antecubital; bp 11:28 Follow up: Response: No adverse reaction bp Disposition Summary: 12/15/24 11:10 Discharge Ordered Notes: Location: Home kb Condition: Stable kb Diagnosis - Acute upper respiratory infection, unspecified kb Followup: kb - With: Emergency Department - When: As needed - Reason: Worsening of condition Followup: kb - With: Private Physician - When: 2 - 3 days - Reason: Recheck today's complaints, Continuance of care, Re-evaluation by your physician Discharge Instructions: - Discharge Summary Sheet kb - Upper Respiratory Infection, Adult, [id number] kb Forms: - Medication Reconciliation Form kb - Antibiotic Education kb - Prescription Opioid Use kb - Patient Portal Instructions kb - Leadership Thank You Letter kb Prescriptions: - albuterol sulfate 90 mcg/actuation Inhalation HFA Aerosol Inhaler - inhale 2 puff INHALATION route every 4 to 6 hours as needed for shortness of kb breath or wheezing; 1 Unspecified; Refills: 0, Product Selection Permitted - Prednisone 20 mg Oral Tablet - take 1 tablet ORAL route once daily for 5 days; 5 tablet; Refills: 0, Product kb Selection Permitted - Tessalon Perles 100 mg Oral Capsule - take 1 capsule ORAL route every 8 hours As needed; 15 capsule; Refills: 0, kb Product Selection Permitted Signatures: Dispatcher [employer] Virginia Nguyen, SUPERVISOR WET END-C SUPERVISOR WET END-Kong Squires, RN RN bp
--- NOTE | 2024-12-15 11:11 | ER ---
Nurse's Notes [facility] Name: Salvador Mays Age: 29 yrs Sex: Male : 1995 Arrival Date: 12/15/2024 Time: 09:59 Bed 15 Private MD: Diagnosis: Acute upper respiratory infection, unspecified Presentation: 12/15 10:00 Chief complaint: EMS states: FLU LIKE S/S x2 DAYS. Coronavirus screen: cough unrelated bp to allergies, muscle pain. Ebola Screen: No symptoms or risks identified at this time. Initial Sepsis Screen: Does the patient meet any 2 criteria? No. Patient's initial sepsis screen is negative. Does the patient have a suspected source of infection? No. Patient's initial sepsis screen is negative. Risk Assessment: Do you want to hurt yourself or someone else? Patient reports no desire to harm self or others. Onset of symptoms is unknown. 10:00 Method Of Arrival: EMS: [facility] bp 10:00 Acuity: LORETO 3 bp Triage Assessment: 10:01 General: Appears in no apparent distress. Behavior is cooperative, appropriate for age, bp anxious. Pain: Denies pain. EENT: No deficits noted. Neuro: No deficits noted. Cardiovascular: No deficits noted. Respiratory: Reports cough that is. GI: Reports nausea. : No signs and/or symptoms were reported regarding the genitourinary system. Derm: No deficits noted. Musculoskeletal: No deficits noted. Historical: - Allergies: 10:01 Grass; bp - Immunization history:: Adult Immunizations up to date. - Infectious Disease History:: Denies. - Social history:: Smoking status: unknown. Screenin:29 [facility] ED Fall Risk Assessment (Adult) History of falling in the last 3 months, bp including since admission No falls in past 3 months (0 pts) Confusion or Disorientation No (0 pts) Intoxicated or Sedated No (0 pts) Impaired Gait No (0 pts) Mobility Assist Device Used No (0 pt) Altered Elimination No (0 pt) Score/Fall Risk Level 0 - 2 = Low Risk Oriented to surroundings. Abuse screen: Denies threats or abuse. Denies injuries from another. Nutritional screening: No deficits noted. Tuberculosis screening: No symptoms or risk factors identified. Vital Signs: 10:00 BP 148 / 88; Pulse 98; Resp 20; Temp 99.1; Pulse Ox 98% ; bp 11:29 BP 139 / 78; Pulse 87; Resp 20; Pulse Ox 98% ; bp ED Course: 09:59 Patient arrived in ED. bp 10:00 Virginia Sanchez FNP-C is PHCP. kb 10:00 Benjie Garcia MD is Attending Physician. kb 10:01 Triage completed. bp 10:02 Kong Weeks, RN is Primary Nurse. bp 10:02 Arm band placed on. bp 10:25 Chest Single View XRAY In Process Unspecified. EDMS 10:30 Initial lab(s) drawn, by me, sent to lab. Inserted saline lock: 20 gauge in right bp antecubital area, using aseptic technique. Blood collected. Flushed with 10 mL NS. 11:10 Benjie Garcia MD is Referral Physician. kb 11:10 Referral Physician role handed off by Benjie Garcia MD kb 11:28 IV discontinued, intact, bleeding controlled, No redness/swelling at site. Pressure bp dressing applied. 11:29 Patient has correct armband on for positive identification. bp 11:29 No provider procedures requiring assistance completed. bp Administered Medications: 10:13 Drug: NS 0.9% IV 1000 ml IV at 1 bolus Per protocol; to be given as a bolus over 60 bp minutes Route: IV; Rate: 1 bolus; Site: right antecubital; 11:28 Follow up: IV Status: Completed infusion bp 10:14 Drug: Ondansetron IVP 4 mg IVP once; over 2 minutes Route: IVP; Site: right antecubital;bp 11:28 Follow up: Response: No adverse reaction bp 10:14 Drug: Tussionex Pennkinetic ER PO Suspension 5 ml PO once Route: PO; bp 11:28 Follow up: Response: No adverse reaction bp 11:28 Drug: Decadron - Dexamethasone IVP 10 mg IVP once Route: IVP; Site: right antecubital; bp 11:28 Follow up: Response: No adverse reaction bp Outcome: 11:10 Discharge ordered by . kb 11:29 Discharged to home ambulatory, bp 11:29 Condition: stable 11:29 Discharge instructions given to patient, Instructed on discharge instructions, follow up and referral plans. medication usage, Demonstrated understanding of instructions, follow-up care, medications, Prescriptions given X 3, 11:30 Patient left the ED. bp Signatures: Dispatcher [employer] EDVirginia Herman, ICE PLANT OPERATOR-C ICE PLANT OPERATOR-Kong Squires, RN RN bp
[2024-12-15 11:34] VITALS: TEMP 99.1; O2SAT 98
[2024-12-15 11:36] VITALS: BP 139/78
== END 2024-12-15 11:30 | disposition home or self-care (01) ==
LOC: ER 09:59
DX: J06.9 Acute upper respiratory infection, unspecified (principal); Z11.52 Encounter for screening for COVID-19
CPT/HCPCS: 96361; 87070; 85025; 36415; 80053; 71045; 96375; 96374; 99284; 87428; J1100; J2405; J7030